=== PATIENT | female | born 1985 | race Caucasian/White ===

== ENCOUNTER → 2024-03-10 09:17 | Outpatient (REF) | payer OTHER, SELFPAY | LOC: WDC 09:17 | PROVIDERS: ATTENDING PHYSICIAN Nurse Practitioner Adult Health; FAMILY PHYSICIAN Family Medicine | DX: N63.21 Unspecified lump in the left breast, upper outer quadrant (principal) | CPT/HCPCS: 76642; 77062; 77066 ==